=== PATIENT | female | born 1950 | race Caucasian/White ===

== ENCOUNTER 2016-11-12 00:08 | Day surgery (SDC) | payer MEDICARE ==
[2016-11-12] VITALS (11 sets, daily range): BP systolic 107–157; BP diastolic 57–91; PULSE 54–90; RESP 14–22; O2SAT 94–97
[~2016-11-12] VITALS: Ht 162.6 cm; Wt 103.7 kg
[~2016-11-12 00:08] MED LIST: AMLO5TAB2 PO; HYDR25TA4 PO; LEVO125T6 PO; LISI-571 PO; MAGN400T4 PO; METF500T4 PO; METO25TA99 PO; WARFARIN PO
[2016-11-12] MEDS ORDERED: CeFAZolin 2 Gm/50 mL D5W IV Premix IV ONE (10:06)
[2016-11-12] MEDS ORDERED: 0.9% Sodium Chloride 1,000 ML IV SCH (10:10)
[2016-11-12 11:27] LABS: BASOPHILS % (AUTO) 0.6 % (0-3); EOSINOPHILS % (AUTO) 1.9 % (0-5); MONOCYTES % (AUTO) 9.3 % (4-12); Mean Corpuscular Hemoglobin 28.8 pg (27.0-35.0); Mean Corpuscular Volume 86.6 fL (81-100); NEUTROPHILS % (AUTO) 62.5 % (40-74); Platelet Count 301 bil/L (150-400)
[2016-11-12 11:52] LABS: INR 2.15 ratio
[2016-11-12] MEDS ORDERED: Bupivacaine-MPF 0.5% 30 mL Inj ONE (11:59)
[2016-11-12] MEDS ORDERED: Heparin 5,000 Units/500 mL NS Premix IV ONE (11:59)
[2016-11-12] MEDS ORDERED: 0.9% Sodium Chloride 250 ML ONE (12:00)
[2016-11-12] MEDS ORDERED: WARF5TAB7 PO (12:04)
[2016-11-12] MEDS ORDERED: LEVO100T6 PO (12:04)
[2016-11-12] MEDS ORDERED: fentaNYL-PF 50 mCg/mL 2 mL Inj ONE (12:52)
[2016-11-12] MEDS ORDERED: HYDROcodone-APAP 5-325 mg Tablet PO PRN (14:00)
[2016-11-12] MEDS ORDERED: Ondansetron 2 mg/mL 2 mL Inj IVPUSH PRN (14:00)
[2016-11-12] MEDS: 0.9% Sodium Chloride 1,000 ML IV SCH (15:07)
[2016-11-12] MEDS ORDERED: CeFAZolin Inj 1 GM in IV Premix 1 EACH IV SCH (16:30)
--- NOTE | 2016-11-12 16:58 | DRSVH ---
PROCEDURE: X-RAY CHEST ONE VIEW, PORTABLE ([id number]) INDICATIONS: For new leads placed TECHNIQUE: One view of the chest was acquired. COMPARISON: [facility], , CHEST 1 VIEW, 06/27/2016, 10:34. FINDINGS: Surgical changes and devices: Left-sided pacer. Lungs and pleura: No pleural effusions or pneumothorax. Lungs are clear. Mediastinum: Mediastinal contours appear normal. Heart size is normal. Bones and chest wall: No suspicious bony lesions. Overlying soft tissues appear unremarkable. IMPRESSION: No acute process. Dictated by: Kamran Puckett M.D. on 11/12/2016 at 16:56 Approved by: Kamran Puckett M.D. on 11/12/2016 at 16:56
--- NOTE | 2016-11-12 18:08 | NUR ---
Admit to PCC Pt admitted to PCC room 2026 from [facility]. Report received from Arlet LANZA. Pt arrived by wheelchair and transferred to bed with minimal assistance. Pt post op for pacer placement. Incision on left upper chest not visualized, dressing clean, dry and intact. Sling in place on left arm. Pt was placed on tele, tech notified. NS was started at 100mls/hour and per orders is to run until midnight. Pt is alert and oriented, very pleasant and is cooperating with all cares.
[2016-11-12] MEDS: CeFAZolin Inj 1 GM in IV Premix 1 EACH IV SCH (21:36)
--- NOTE | 2016-11-12 23:07 | OP ---
[address] [address] OPERATIVE REPORT PATIENT: JULIANNA HUFFMAN : 1950 MR#: [id number] ADMIT: 11/12/2016 JOB ID: [id number] DATE OF SURGERY: 11/12/2016 PREOPERATIVE DIAGNOSIS(ES): Sick sinus syndrome. POSTOPERATIVE DIAGNOSIS(ES): Sick sinus syndrome. PROCEDURES PERFORMED: 1. Dual-chamber pacemaker implantation. 2. Left upper extremity venogram. 3. Fluoroscopy. SURGEON: Axel Zurita MD, digital pre press operator attending. FRONT OFFICE ATTENDANT: Elton Hernández. IMPLANTED DEVICES: 1. [employer] pulse generator, model RP7281, serial number [id number]. 2. Right atrial lead [employer], [id number], 46 cm, serial number [id number]. 3. RV lead [employer], [id number], 52 cm, serial number [id number]. ANESTHESIA: Bolus dosing of Versed and fentanyl were utilized for appropriate level of sedation. INDICATION: The patient is a pleasant 66-year-old woman with sick sinus syndrome, paroxysmal atrial fibrillation. After discussion of risks and benefits of pacemaker implantation, she opted to proceed. PROCEDURAL DESCRIPTION: Following informed consent, the patient was taken to the EP laboratory in a fasting, nonsedated state, where she was prepped and draped in usual sterile fashion. The left infraclavicular region was infiltrated with 40 cc of a 50/50 mixture of bupivacaine and lidocaine. Once adequate anesthesia had been achieved, a 3 cm transverse incision was performed 2 cm below the left clavicle. Dissection was carried down to the pectoralis fascia and a pocket was then fashioned using combination of electrocautery and blunt dissection. Once adequate hemostasis had been achieved, attempts to access the left axillary vein with a micropuncture needle were unsuccessful. A left upper extremity venogram was performed. Under venographic guidance, the vessel was cannulated twice with a micropuncture needle to deploy two 0.035, 3 mm J guidewires. Over the first of these, an 8-Israeli tear-away sheath was advanced. Once the guidewire was removed, an active fixation lead was advanced to the RV outflow tract and ultimately the RV apex. The lead was affixed in position using its associated fixation screw. It was connected to the external analyzer and demonstrated appropriately sensed R waves, impedance, capture threshold. Lead was checked to 10 V and there was no evidence of diaphragmatic stimulation. Attention was now paid to placement of the right atrial lead. Over the previously deployed J guidewire another 8-Israeli tear-away sheath was advanced. Once the guidewire was removed, an active fixation lead was advanced to the right atrial appendage. It was affixed in position using its associated active fixation screw. The lead was connected to the external analyzer and demonstrated appropriately sensed fibrillation waves, impedance and no diaphragmatic stimulation at 10 V with asynchronous pacing. The patient went into atrial fibrillation during the case. Once the position and redundancy of both leads was confirmed with multiple fluoroscopic views, the leads were anchored to the prepectoralis fascia using their associated anchoring sleeves and two heavy Ethibond sutures. The pocket was then copiously irrigated with antibiotic solution. The leads were connected to a generator and the generator was placed in the pocket and was affixed to the floor of the pocket using 1-0 Ti-Cron suture. The incision was then closed with running layers of absorbable suture. The wound was dressed with skin adhesive and a small dressing. At the end of procedure, the needle, sponge and instrument counts were all correct. COMPLICATIONS: None. ESTIMATED BLOOD LOSS: 5-10 cc. DEVICE MEASURED DATA: 1. Right atrial lead 0.9 mV, fibrillation waves, 450 ohms. 2. RV lead greater than 12 mV, 560 ohms, 0.5 V at 0.4 msec. FINAL PROGRAM PARAMETERS: DDDR 60-130 beats per minute with mode switching to DDIR 60 beats per minute. IMPRESSION: Successful dual-chamber pacemaker implantation. PLAN: 1. Stat portable chest x-ray. 2. PA and lateral chest x-ray in the morning. 3. IV Ancef. 4. Keflex x7 days. 5. Wound check in one week. 6. Initiate flecainide 50 mg twice daily with a followup visit in one week for EKG. ATTENDING STATEMENT: Axel Zurita MD, electrophysiology attending, was present for and supervised/performed all aspects of this procedure.
[2016-11-13 00:09] VITALS: BP 116/68; PULSE 62; RESP 20; O2SAT 97
[2016-11-13 03:40] VITALS: PULSE 60
[2016-11-13 03:42] LABS: INR 2.33 ratio
[2016-11-13 04:18] VITALS: BP 115/68; PULSE 60; RESP 18; O2SAT 94
[2016-11-13] MEDS: CeFAZolin Inj 1 GM in IV Premix 1 EACH IV SCH (05:12)
--- NOTE | 2016-11-13 05:50 | NUR ---
Pain/Pacer Pt c/o 4-01/02 pain localized around pacer incision site, pt given Tylenol per request and stated this was effective at pain management. Tele has been both A and V Paced overnight w/ rate mostly in 60s. Pt's pacer site has no oozing, left arm in sling, pt compliant w/ limiting arm movement. Pt did not report symptoms w/ first admin of flecainide, care notes on this med were given to pt.
[2016-11-13 08:00] VITALS: BP 125/68; PULSE 60; PULSE 64; RESP 16; O2SAT 98
[2016-11-13] MEDS ORDERED: MeTOProlol XL 25 mg ER24 Tablet PO SCH (08:30)
--- NOTE | 2016-11-13 08:36 | PCM.DIMED ---
Discharge Instructions Date of Service Nov 13, 2016 Dates of Hospitalization Discharge Diagnosis Discharge Diagnosis Sinus Bradycardia Paroxysmal Atrial Fibrillation Paroxysmal Atrial Flutter Hypertension Diet Heart Healthy Activity Other (Keep incision dry one day. Do not extend left elbow high above shoulder for one month. Do not lift, push or pull more than 10 lbs with the left arm for one month.) Call your provider Fever or Chills, Bleeding, Excessive diarrhea Patient Instructions Follow-up in: 1 week Mid-level Provider (F9): Siddharth Tolliver PA-C Follow-up with Mid-level in: 6 weeks Siddharth Tolliver PA-C Nov 13, 2016 08:36
[2016-11-13] MEDS ORDERED: CEPH500C PO (08:50)
[2016-11-13] MEDS ORDERED: FLC50T PO (08:50)
--- NOTE | 2016-11-13 09:43 | DRSVH ---
PROCEDURE: X-RAY CHEST, TWO VIEWS ([id number]) INDICATIONS: FOR NEW LEAD PLACEMENT. TECHNIQUE: Two views of the chest were acquired. COMPARISON: [facility], CR, XR CHEST 1VW (PORTABLE), 11/12/2016, 16:31. FINDINGS: Surgical changes and devices: Stable position of left cardiac pacer. Lungs and pleura: No pleural effusions or pneumothorax. Lungs are clear. Elevated right hemidiaphra gm redemonstrated. Mediastinum: Mediastinal contours are normal. Heart size is normal. Bones and chest wall: No suspicious bony abnormalities. Soft tissues appear unremarkable. IMPRESSION: 1. Stable chest post pacer placement. Dictated by: Kwan Lester RRA Interpreted: Carmelita Aguila MD on 11/13/2016 at 9:09 Transcribed by: ANYA on 11/13/2016 at 12:43 Approved by: Carmelita Aguila MD, PhD on 11/13/2016 at 16:43
[2016-11-13] MEDS: 0.9% Sodium Chloride 1,000 ML IV SCH ×2 (10:00)
--- NOTE | 2016-11-13 11:03 | NUR ---
Discharge: Dressing removed by cardiology, wound well approximated with dermabond to incision. Up ad freddie in room/isabel, no gait instability noted. Given pacer booklet, care notes r/t flecainide, cephalexin and pacemakers. IVs d/c'd intact. D/c'd home with all personal belongings, providing transportation.
--- NOTE | 2016-11-13 13:26 | DIS ---
[address] [address] DISCHARGE SUMMARY PATIENT: JULIANNA HUFFMAN : 1950 MR#: [id number] ADMIT: 11/12/2016 JOB ID: [id number] DIS: 11/13/2016 DATE OF DISCHARGE: 11/13/2016 REASON FOR ADMISSION: Pacemaker implant. CHIEF COMPLAINT: Persistent bradycardia and fatigue. BRIEF HISTORY: The patient is a pleasant 66-year-old woman with a history of paroxysmal atrial flutter and atrial fibrillation who also has documented bradycardia with sinus rates down into the 30s. Her daytime rates persists in the 50s, and she is fatigued but not had syncope. She was advised of the indication of a pacemaker and agreed to move forward with it. COURSE IN HOSPITAL: The patient was admitted through the [facility] and taken to the quality control lab tech where she received the dual-chamber cardiac pacemaker without incident. She was transferred back to [facility] for recovery from sedation and then taken up to the [facility] for overnight telemetry monitoring and observation. She did well overnight and in the morning was ambulatory without difficulty. She felt a little nauseated in the morning and had not had breakfast yet but was looking forward to it. She recovered from the nausea prior to discharge home. Her pacemaker site is closed and dry. There is no hematoma. Chest x-ray shows good lead positions and no pneumothorax. Device evaluation shows excellent capture and sensing thresholds for both chambers. She has received atrial pacing 41% of the time. DISPOSITION: The patient was discharged home in good condition with a followup appointment at the [facility] Cardiology office in one week. She was asked not to extend her left elbow high above her shoulder for one month and not to lift, push, or pull more than 10 pounds with the left arm for one month. She will follow her heart-healthy diet and take medications as prescribed. She had no complaints of chest pain, dyspnea, dizziness, or palpitations prior to discharge. DISCHARGE MEDICATIONS: 1. Cephalexin 500 mg b.i.d. 2. Flecainide 50 mg b.i.d. 3. Amlodipine 5 mg daily. 4. Hydrochlorothiazide 25 mg daily. 5. Levothyroxine 100 mcg daily. 6. Lisinopril 5 mg daily. 7. Magnesium oxide 400 mg daily. 8. Metformin 500 mg b.i.d. 9. Metoprolol succinate 25 mg daily. 10. Warfarin 5 mg daily or as directed by her anticoagulation clinic. FINAL DIAGNOSES: 1. Paroxysmal atrial fibrillation. 2. Paroxysmal atrial flutter. 3. Symptomatic sinus bradycardia. 4. Hypertension.
== END 2016-11-13 11:03 | disposition home or self-care (01) ==
LOC: SOUO 00:08 → PCC 17:11 → SOUO 23:59
PROVIDERS: ATTEND Internal Medicine Cardiovascular Disease
DX: I49.5 Sick sinus syndrome (principal); I48.0 Paroxysmal atrial fibrillation; I35.0 Nonrheumatic aortic (valve) stenosis; I48.92 Unspecified atrial flutter; I10 Essential (primary) hypertension; Z79.01 Long term (current) use of anticoagulants
CPT/HCPCS: 33208; 36415; 71010; 71020; 80048; 85025; 85610; 93005; 99152; 99153; C1769; C1785; C1892; C1898; J0690; J1644; J2250; J3010; J7030; J7050